=== PATIENT | female | born 1990 | race American Indian/Alaskan Native ===

== ENCOUNTER 2018-06-11 12:40 | Emergency (ER) | payer OTHER ==
[2018-06-11 13:01] VITALS: BP 125/74
[2018-06-11] MEDS ORDERED: DELTASONE PO ONE (13:31)
[2018-06-11] MEDS ORDERED: IBUPROFEN PO ONE (13:31)
--- NOTE | 2018-06-11 13:31 | Emergency Department Report ---
Minor Respiratory - HPI Chief Complaint: Dental/Oral Stated Complaint: FACE PAIN Time Seen by Provider: 06/11/18 13:30 Duration: 3 Days Pain Location: Facial Severity: mild Minor Respiratory: Yes Able to Tolerate Fluids, Yes Ear Pain, No Rhinorrhea, No Sore Throat, No Cough, No Sick Contacts, No Hemoptysis, No Chest Pain, No Shortness of Breath, No Fever Other History: Patient is a 28-year-old female comes to the ER from work today complaining of right-sided facial pain. Pt works at [employer] and the headset is irritating her face. She has no dental pain. She has no complaints of sinus congestion or rhinorrhea. She has no cough or recent urti. She is just stating that over her temporal she is having pain and her ear is hurting. She is nontoxic, ambulatory and afebrile. pmh. none. rx. none. psh. none ED Review of Systems ROS: Stated complaint: FACE PAIN Other details as noted in HPI Comment: All other systems reviewed and negative Skin: denies: rash, lesions Neurological: denies: headache, weakness ED Past Medical Hx - Past Medical History Previous Medical History?: No - Surgical History Past Surgical History?: No - Family History Family history: no significant - Social History Smoking Status: Never Smoker Substance Use Type: None - Medications Home Medications: Home Medications Medication Instructions Recorded Confirmed Last Taken Type Azithromycin [Zithromax Z-MABEL] 250 mg PO DAILY #6 tablet 06/11/18 Unknown Rx Cetirizine HCl [ZyrTEC] 10 mg PO DAILY #30 capsule 06/11/18 Unknown Rx Fluticasone [Flonase] 1 spray NS QDAY #1 bottle 06/11/18 Unknown Rx predniSONE [Deltasone] 20 mg PO DAILY #5 tablet 06/11/18 Unknown Rx Minor Respiratory Exam - Exam General: Vital signs noted. No distress. Alert and acting appropriately. no facial weakness pt can close eye no ludwigs no abscess no noted dental caries no gingival disease TM normal no headache no fever no weakness no hx of the same HEENT: Yes Moist Mucous Membranes, No Pharyngeal Erythema, No Pharyngeal Exudates, No Rhinorrhea, No Conjuctival Injection, No Frontal Tenderness, No Maxillary Tenderness Ear: Neither TM Bulge, Neither TM Erythema, Neither EAC Pain, Neither EAC Discharge Neck: Yes Supple, No Adenopathy Lungs: Yes Good Air Exchange, No Wheezes, No Ronchi, No Stridor, No Cough, No Labored Respirations, No Retractions, No Use of Accessory Muscles, No Other Abnormal Lung Sounds Heart: Yes Regular, No Murmur Abdomen: Yes Normal Bowel Sounds, No Tenderness, No Peritoneal Signs Skin: No Rash, No Edema Neurologic: Alert and oriented, no deficits. Musculoskeletal: Unremarkable. ED Course Vital Signs 06/11/18 12:59 Temperature 98.2 F Pulse Rate 68 Respiratory 18 Rate Blood Pressure 125/74 O2 Sat by Pulse 100 Oximetry ED Medical Decision Making - Medical Decision Making Vital signs noted. No distress. Alert and acting appropriately. no facial weakness pt can close eye no ludwigs no abscess no noted dental caries no gingival disease TM normal no headache no fever no weakness slight tenderness over left maxillary sinus pos post nasal drip no pain over 3 divisions of trigeminal nerve no eye tearing no hx of the same medicated in ER discussed concerns with pt and she will follow up with Dr Giron no later than Saturday. Vital Signs 06/11/18 06/11/18 12:59 13:36 Temperature 98.2 F Pulse Rate 68 Respiratory 18 18 Rate Blood Pressure 125/74 O2 Sat by Pulse 100 Oximetry - Differential Diagnosis bells palsy, trigeminal neuralgia, temporal arteritis, dental disease, sinu Critical care attestation.: If time is entered above; I have spent that time in minutes in the direct care of this critically ill patient, excluding procedure time. ED Disposition Clinical Impression: Sinusitis, Face pain Disposition: TO HOME OR SELFCARE Is pt being admited?: No Does the pt Need Aspirin: No Condition: Stable Instructions: Sinusitis (ED) Additional Instructions: meds as ordered hydrate well with water follow up with pcp by Saturday diet as tolerated activity as tolerated return to work in AM Referrals: [facility] [Outside] - 3-5 Days Time of Disposition: 13:57
== END 2018-06-11 14:16 | disposition home or self-care (01) ==
LOC: ED 12:40
DX: J32.9 Chronic sinusitis, unspecified (principal)
CPT/HCPCS: 99282; J7512